=== PATIENT | female | born 1940 | race Caucasian/White ===

== ENCOUNTER 2020-08-18 21:39 | Inpatient (IN) | payer MEDICARE, MEDICAID ==
[~2020-08-18] VITALS: Ht 165.1 cm; Wt 127.9 kg
[2020-08-18] MEDS ORDERED: LUMIGAN 0.01%2.5 ML OP (22:35)
[2020-08-18] MEDS ORDERED: ROCALTROL0.25 MCG PO (22:35)
[2020-08-18] MEDS ORDERED: BAYER CHEWABLE81 MG PO (22:36)
[2020-08-18] MEDS ORDERED: VITAMIN D325 MC1 PO (22:37)
[2020-08-18] MEDS ORDERED: MECLIZINE HCL25 MG PO (22:41)
[2020-08-18] MEDS ORDERED: FUROSEMIDE20 MG PO (22:46)
[2020-08-18] MEDS ORDERED: ULTRAM50 MG PO (22:55)
[2020-08-18] MEDS ORDERED: ZYLOPRIM100 MG PO (22:55)
[2020-08-18] MEDS ORDERED: ELAVIL25 MG PO (22:55)
[2020-08-18] MEDS ORDERED: LANTUS INS100 UNITS/ SC (22:56)
[2020-08-18] MEDS ORDERED: HUMULIN R100 UNIT/1 (22:57)
[2020-08-18] MEDS ORDERED: OXYBUTYNIN CHLOR5 MG PO (22:57)
[2020-08-18] MEDS ORDERED: LIPITOR20 MG PO (22:58)
[2020-08-18] MEDS ORDERED: GABAPENTIN100 MG PO (22:59)
[2020-08-18] MEDS ORDERED: LEVOXYL125 MCG PO (23:00)
[2020-08-18] MEDS ORDERED: C-10001000 MG PO (23:00)
[2020-08-18] MEDS ORDERED: TOPROL XL50 MG PO (23:01)
[2020-08-18] MEDS ORDERED: LISINOPRIL10 MG PO (23:02)
[2020-08-19] VITALS (7 sets, daily range): BP systolic 128–177; BP diastolic 47–76; BMI 47.0
--- NOTE | 2020-08-19 00:15 | NUR ---
DR. GUAN MADE AWARE OF CONSULT AND ABG RESULTS, NO NEW ORDERS RECEIVED AT THIS TIME.
--- NOTE | 2020-08-19 01:10 | NUR ---
URINE SAMPLE COLLECTED AND TAKEN TO LAB.
[2020-08-19 05:33] LABS: BASOPHILS 0.2 % (0-2); EOSINOPHILS 2.9 % (0-7); HEMATOCRIT 46.1 % (36.0-48.0); HEMOGLOBIN 14.1 g/dL (12-16); IMMATURE GRANULOCYTES 0.5 % (0-5); LYMPHOCYTE ABS# 1.95 10x3/uL (1.18-3.74); LYMPHOCYTES 22.5 % (15-50); MCH 28.9 pg (26.0-34.0); MCHC 30.6 g/dL (31.0-37.0); MCV 94.5 fL (80.0-100.0); MEAN PLATELET VOLUME 9.9 fL (7.4-10.4); MONOCYTES 13.2 % (2-11); NEUTROPHIL ABS# 5.25 10x3/uL (1.56-6.13); NEUTROPHILS 60.7 % (40-80); PLATELET COUNT 226 10x3/uL (130-400); RBC 4.88 10x6/uL (4.00-5.40); RDW 15.3 % (11.5-14.5); WBC 8.7 10x3/uL (4.8-10.8)
[2020-08-19 06:04] LABS: ALBUMIN 2.5 g/dL (3.4-5.0); ANION GAP 8.4 mmol/L (8-16); BILIRUBIN - TOTAL 0.44 mg/dL (0.2-1.3); CALCIUM 8.8 mg/dL (8.5-10.1); CARBON DIOXIDE 33.4 mmol/L (21.0-32.0); CREATININE - SERUM 1.1 mg/dL (0.6-1.3); POTASSIUM - SERUM 4.8 mmol/L (3.5-5.1); PROTEIN - SERUM 6.3 g/dL (6.4-8.2)
[2020-08-19 06:36] LABS: BILIRUBIN NEGATIVE (NEGATIVE); KETONE NEGATIVE (NEGATIVE); NITRITE NEGATIVE (NEGATIVE); UROBILINOGEN NORMAL mg/dL (< 2)
[2020-08-19 06:37] LABS: BACTERIA FEW HPF (NONE SEEN); SQUAMOUS EPITHELIAL 0-5 HPF (0-4); WHITE CELLS - URINE 2 HPF (0-4)
[2020-08-19 07:37] LABS: BASOPHILS 0.2 % (0-2); EOSINOPHILS 3.2 % (0-7); HEMATOCRIT 45.3 % (36.0-48.0); HEMOGLOBIN 13.9 g/dL (12-16); IMMATURE GRANULOCYTES 0.6 % (0-5); LYMPHOCYTE ABS# 1.65 10x3/uL (1.18-3.74); LYMPHOCYTES 20.6 % (15-50); MCH 28.9 pg (26.0-34.0); MCHC 30.7 g/dL (31.0-37.0); MCV 94.2 fL (80.0-100.0); MEAN PLATELET VOLUME 9.6 fL (7.4-10.4); MONOCYTES 11.9 % (2-11); NEUTROPHIL ABS# 5.08 10x3/uL (1.56-6.13); NEUTROPHILS 63.5 % (40-80); PLATELET COUNT 237 10x3/uL (130-400); RBC 4.81 10x6/uL (4.00-5.40); RDW 15.3 % (11.5-14.5)
[2020-08-19 08:03] LABS: APTT 38.9 SECONDS (22.8-39.4); INR 1.07 (0.85-1.17); PROTIME 12.9 SECONDS (11.6-15.0)
[2020-08-19 08:04] LABS: D-DIMER-QUANTITATIVE 0.64 ug/mLFEU (0.20-0.54)
[2020-08-19 08:16] LABS: ALBUMIN 2.5 g/dL (3.4-5.0); ALKALINE PHOSPHATASE 123 U/L (30-120); BILIRUBIN - TOTAL 0.33 mg/dL (0.2-1.3); CALC OSMOLALITY 289 mosm/kg (275-300); CALCIUM 8.1 mg/dL (8.5-10.1); CHLORIDE - SERUM 102 mmol/L (98-107); CREATINE KINASE 60 UL (21-215); CREATININE - SERUM 1.1 mg/dL (0.6-1.3); GLUCOSE 281 mg/dL (74-106); POTASSIUM - SERUM 4.8 mmol/L (3.5-5.1); PRO BNP 169 pg/mL (0-450); PROTEIN - SERUM 5.6 g/dL (6.4-8.2); SODIUM 139 mmol/L (136-145); UREA NITROGEN 17 mg/dL (7-18); eGFR NON AFRICAN AMERICAN 51 mL/min (90-120)
[2020-08-19 08:20] LABS: ALT (SGPT) 23 U/L (10-68); TROPONIN-I < 0.017 ng/mL (0.000-0.060)
--- NOTE | 2020-08-19 18:32 | NUR ---
ATTEMPTED TO VERIFY MEDS WITH PATIENT AND SHE STATED SHE DID NOT KNOW HER MEDS, CALLED NUMBER FOR DAUGHTER AND IT WAS DISCONNECTED.
[2020-08-20] VITALS: BP 180/60
[2020-08-20 04:00] VITALS: BP 163/58
[2020-08-20 05:30] LABS: BASOPHILS 0.2 % (0-2); EOSINOPHILS 3.4 % (0-7); HEMATOCRIT 46.7 % (36.0-48.0); IMMATURE GRANULOCYTES 0.6 % (0-5); LYMPHOCYTE ABS# 2.12 10x3/uL (1.18-3.74); LYMPHOCYTES 24.2 % (15-50); MCH 28.3 pg (26.0-34.0); MCV 94.5 fL (80.0-100.0); MEAN PLATELET VOLUME 9.8 fL (7.4-10.4); MONOCYTES 12.3 % (2-11); NEUTROPHIL ABS# 5.19 10x3/uL (1.56-6.13); NEUTROPHILS 59.3 % (40-80); PLATELET COUNT 239 10x3/uL (130-400); RBC 4.94 10x6/uL (4.00-5.40); RDW 15.3 % (11.5-14.5); WBC 8.8 10x3/uL (4.8-10.8)
[2020-08-20 05:51] LABS: ALBUMIN 2.6 g/dL (3.4-5.0); ANION GAP 9.4 mmol/L (8-16); BILIRUBIN - TOTAL 0.34 mg/dL (0.2-1.3); CALCIUM 8.7 mg/dL (8.5-10.1); CARBON DIOXIDE 32.5 mmol/L (21.0-32.0); CREATININE - SERUM 0.9 mg/dL (0.6-1.3); POTASSIUM - SERUM 4.9 mmol/L (3.5-5.1); PROTEIN - SERUM 5.7 g/dL (6.4-8.2)
--- NOTE | 2020-08-20 08:25 | NUR ---
PATIENT SITTING UP IN BED, JUST FINISHED BREAKFAST. PATIENT DENIES PAIN OR NEEDS. CALL LIGHT IN REACH. NAD NOTED.
[2020-08-20 08:44] VITALS: BP 153/59
[2020-08-20 11:27] VITALS: BP 161/71
[2020-08-20 14:07] VITALS: BMI 46.9
[2020-08-20 16:00] VITALS: BP 156/58
--- NOTE | 2020-08-20 19:30 | NUR ---
PT SETTING UP ON SIDE OF BED, PT AAO X 4, RESP EVEN AND UNLABORED, NO DISTRESS NOTED, CL IN REACH.
[2020-08-20 20:00] VITALS: BP 167/56
[2020-08-21] VITALS: BP 124/64; BP 137/62
--- NOTE | 2020-08-21 01:53 | NUR ---
I have reviewed this patient and I concur with the Shift Assessment completed by the Licensed Practical Nurse today this shift.
[2020-08-21 05:57] LABS: BASOPHILS 0.2 % (0-2); EOSINOPHILS 3.4 % (0-7); HEMOGLOBIN 14.5 g/dL (12-16); IMMATURE GRANULOCYTES 0.6 % (0-5); LYMPHOCYTE ABS# 2.39 10x3/uL (1.18-3.74); LYMPHOCYTES 27.2 % (15-50); MCHC 30.9 g/dL (31.0-37.0); MEAN PLATELET VOLUME 10.2 fL (7.4-10.4); MONOCYTES 11.9 % (2-11); NEUTROPHIL ABS# 4.99 10x3/uL (1.56-6.13); NEUTROPHILS 56.7 % (40-80); PLATELET COUNT 252 10x3/uL (130-400); RDW 15.4 % (11.5-14.5); WBC 8.8 10x3/uL (4.8-10.8)
[2020-08-21 06:21] LABS: ALBUMIN 2.7 g/dL (3.4-5.0); ANION GAP 9.1 mmol/L (8-16); BILIRUBIN - TOTAL 0.3 mg/dL (0.2-1.3); CALCIUM 8.9 mg/dL (8.5-10.1); CARBON DIOXIDE 33.8 mmol/L (21.0-32.0); PROTEIN - SERUM 6.5 g/dL (6.4-8.2)
[2020-08-21 06:23] LABS: POTASSIUM - SERUM 3.9 mmol/L (3.5-5.1)
[2020-08-21 08:10] VITALS: BP 189/74
[2020-08-21 09:55] VITALS: Ht 165.1 cm; Wt 127.9 kg
[2020-08-21 12:00] VITALS: BP 136/61
[2020-08-21 16:00] VITALS: BP 156/85
--- NOTE | 2020-08-21 19:19 | NUR ---
pt lying in bed, awake, alert watchign tv, denies any needs, will continue to monitor
[2020-08-21 20:00] VITALS: BP 151/65
[2020-08-22] VITALS: BP 168/67
[2020-08-22 04:00] VITALS: BP 147/68
[2020-08-22 06:55] LABS: BASOPHILS 0.2 % (0-2); EOSINOPHILS 2.6 % (0-7); HEMATOCRIT 46.1 % (36.0-48.0); HEMOGLOBIN 13.9 g/dL (12-16); IMMATURE GRANULOCYTES 0.7 % (0-5); LYMPHOCYTE ABS# 1.97 10x3/uL (1.18-3.74); LYMPHOCYTES 23.4 % (15-50); MCH 28.4 pg (26.0-34.0); MCHC 30.2 g/dL (31.0-37.0); MCV 94.3 fL (80.0-100.0); MEAN PLATELET VOLUME 10.1 fL (7.4-10.4); MONOCYTES 11.3 % (2-11); NEUTROPHIL ABS# 5.21 10x3/uL (1.56-6.13); NEUTROPHILS 61.8 % (40-80); PLATELET COUNT 245 10x3/uL (130-400); RBC 4.89 10x6/uL (4.00-5.40); RDW 15.3 % (11.5-14.5); WBC 8.4 10x3/uL (4.8-10.8)
--- NOTE | 2020-08-22 07:00 | NUR ---
Lying in bed, awake/alert/oriented, T/R self ad bhavna, cont of B/B with BRPs per self ad bhavna, denies pain/other discomfort at this time, dressing to lia-rectal abscess C/D/I, call light/phone/water within reach, no s/s of acute distress observed.
[2020-08-22 07:07] LABS: ALBUMIN 2.6 g/dL (3.4-5.0); ANION GAP 8.6 mmol/L (8-16); BILIRUBIN - TOTAL 0.35 mg/dL (0.2-1.3); CALCIUM 8.6 mg/dL (8.5-10.1); CARBON DIOXIDE 33.3 mmol/L (21.0-32.0); CREATININE - SERUM 1.1 mg/dL (0.6-1.3); MAGNESIUM - SERUM 1.9 mg/dL (1.8-2.4); POTASSIUM - SERUM 3.9 mmol/L (3.5-5.1); PROTEIN - SERUM 6.1 g/dL (6.4-8.2); THYROID STIMULATING HORMONE 8.23 uIU/mL (0.36-3.74)
[2020-08-22 08:53] VITALS: BP 170/63
[2020-08-22 11:56] VITALS: BP 166/72
[2020-08-22 16:07] VITALS: BP 168/67
[2020-08-22 19:46] VITALS: BP 159/54
--- NOTE | 2020-08-22 20:40 | NUR ---
perirectal/left labia incision dressing changed per md orders, scant green/yellow drianage noted to old packing. no odor. pt denies pain or issues will contine to monitor
[2020-08-23 05:09] VITALS: BP 132/57
[2020-08-23 07:04] LABS: ALBUMIN 2.7 g/dL (3.4-5.0); ANION GAP 7.5 mmol/L (8-16); BILIRUBIN - TOTAL 0.29 mg/dL (0.2-1.3); CALCIUM 8.6 mg/dL (8.5-10.1); CARBON DIOXIDE 36.7 mmol/L (21.0-32.0); MAGNESIUM - SERUM 1.9 mg/dL (1.8-2.4); POTASSIUM - SERUM 4.2 mmol/L (3.5-5.1); PROTEIN - SERUM 5.7 g/dL (6.4-8.2)
[2020-08-23 07:18] LABS: BASOPHILS 0.3 % (0-2); EOSINOPHILS 1.9 % (0-7); HEMATOCRIT 45.7 % (36.0-48.0); HEMOGLOBIN 14.2 g/dL (12-16); IMMATURE GRANULOCYTES 0.9 % (0-5); LYMPHOCYTE ABS# 2.27 10x3/uL (1.18-3.74); LYMPHOCYTES 29.2 % (15-50); MCH 28.9 pg (26.0-34.0); MCHC 31.1 g/dL (31.0-37.0); MCV 92.9 fL (80.0-100.0); MEAN PLATELET VOLUME 10.7 fL (7.4-10.4); MONOCYTES 11.5 % (2-11); NEUTROPHIL ABS# 4.37 10x3/uL (1.56-6.13); NEUTROPHILS 56.2 % (40-80); PLATELET COUNT 205 10x3/uL (130-400); RBC 4.92 10x6/uL (4.00-5.40); RDW 15.2 % (11.5-14.5); WBC 7.8 10x3/uL (4.8-10.8)
--- NOTE | 2020-08-23 07:50 | NUR ---
Lying in bed, awake/alert/oriented, T/R self ad bhavna, cont of B/B with BRPs per self ad bhavna, denies pain/other discomfort at this time, call light/phone/water within reach, no s/s of acute distress observed.
[2020-08-23 08:17] VITALS: BP 142/60
[2020-08-23 11:36] VITALS: BP 153/87
--- NOTE | 2020-08-23 13:07 | NUR ---
Nutrition Follow-up: Eating well. Denies N/V. C/o some difficulty swallowing. Diet: Cardiac No new wt; last wt: 282# (08/20) Last BM: 08/21 Labs noted: Glu 259, Alb 2.7 Meds noted: Lantus, Humalog, Lasix, Florajen, Protonix, electrolyte protocol -Change to cardiac carb consistent diet. -Pt may benefit from an MANAGER ADVANCED eval. -Need new wt. -RD follow-up: 08/28
[2020-08-23 15:58] VITALS: BP 148/66
--- NOTE | 2020-08-23 18:15 | NUR ---
Cleaned abscess with 1/2 NS and 1/2 H2O2 then packed with gauze soaked with H2O2, tolerated well, no s/s of acute distress observed, call light/phone/water within reach, no s/s of acute distress observed.
[2020-08-23 19:03] VITALS: BP 160/72
[2020-08-24 00:28] VITALS: BP 146/50
[2020-08-24 04:10] VITALS: BP 159/61
[2020-08-24 06:34] LABS: BASOPHILS 0.1 % (0-2); EOSINOPHILS 1.5 % (0-7); HEMATOCRIT 46.2 % (36.0-48.0); IMMATURE GRANULOCYTES 0.5 % (0-5); LYMPHOCYTE ABS# 3.04 10x3/uL (1.18-3.74); LYMPHOCYTES 37.7 % (15-50); MCH 28.5 pg (26.0-34.0); MCHC 30.3 g/dL (31.0-37.0); MCV 93.9 fL (80.0-100.0); MEAN PLATELET VOLUME 9.6 fL (7.4-10.4); NEUTROPHIL ABS# 3.88 10x3/uL (1.56-6.13); NEUTROPHILS 48.2 % (40-80); RBC 4.92 10x6/uL (4.00-5.40); RDW 15.1 % (11.5-14.5); WBC 8.1 10x3/uL (4.8-10.8)
[2020-08-24 06:35] LABS: PLATELET COUNT 248 10x3/uL (130-400)
[2020-08-24 07:10] LABS: ALBUMIN 2.6 g/dL (3.4-5.0); ANION GAP 9.4 mmol/L (8-16); BILIRUBIN - TOTAL 0.34 mg/dL (0.2-1.3); CALCIUM 8.9 mg/dL (8.5-10.1); CARBON DIOXIDE 35.7 mmol/L (21.0-32.0); CREATININE - SERUM 1.1 mg/dL (0.6-1.3); POTASSIUM - SERUM 4.1 mmol/L (3.5-5.1); PROTEIN - SERUM 6.2 g/dL (6.4-8.2)
--- NOTE | 2020-08-24 07:50 | NUR ---
Lying in bed, awake/alert/oriented, T/R self with assist ad bhavna, cont of B/B with BRPs with assist ad bhavna, c/o acking back pain rated 9/10, medicated as ordered (see MAR), call light/phone/water within reach, no s/s of acute distress observed.
[2020-08-24 08:51] VITALS: BP 175/54
--- NOTE | 2020-08-24 09:45 | MORECARE ---
CASE MANAGEMENT DISCHARGE SUMMARY PATIENT: ALEJANDRA LEE UNIT: [id number] ADM DATE: 08/18/20 AGE: 79 : 40 SEX: F ROOM/BED: D.1890 AUTHOR: GIAN,DOC PHYSICIAN: REFERRING PHYSICIAN: CHAPARRITA FELIX MD DATE OF SERVICE: 08/24/20 Case Management Discharge Planning Summary COMMENTS ENTERED DATE: 08/23/20 14:51 CT COMMENT TYPE: Discharge Planning REVIEWER: Ruth Ruiz CM faxed all clinical and DWO for BIPAP or Trilogy whichever one the insurance will approve to [employer] and for home oxygen. Patient has a portable in her room from [employer]. I also faxed order and clinical for hospital bed and BSC. CM will continue to follow and assist with discharge planning/needs. ENTERED DATE: 08/22/20 20:54 CT COMMENT TYPE: Discharge Planning REVIEWER: Rahel Lyons CM spoke with patient to complete initial dc planning assessment. CM educated patient on the CM role and verbal consent given by patient to complete assessment. Patient lives at home with daughter. Patient is independent. At discharge patient plans to return home and feels this is a safe discharge. CM discussed availability of home health, rehab services, and medical equipment. Patient states they just got her set up with home 02 and portable tank. She also states that they have already got her setup with Home Health for when she discharges (dressing changes?) Patient states that she sleeps in a recliner because she can't breathe laying down. Patient states that she has a wound. CM asked if she got a hospital bed that she could have her head up would that help that way she would be able to reposition herself off of her wound. Patient states that she would also like a BSC and wheelchair if possible. Patient will have family to transport home. CM will continue to follow and will assist as needed with dc plans/needs. MALIA completed for [facility] in [place] [phone] fax [phone] and [facility] [phone]. Dr. Jessica souza patient set up for Trilogy upon discharge. CM sent order for Trilogy and BSC to [facility]. PAP REVIEW SUMMARY ANTICIPATED D/C DATE: EXPECTED LOS : CASE STATUS: DCP Initiated INITIAL REVIEW: 08/18/2020 INITIAL REVIEWER: Rahel Lyons FINAL DISCHARGE DISPOSITION: : FINAL REVIEWER: FINAL REVIEW DATE: DCP Focus Questions & Answers DCP Screen QUESTION: ANSWER High Risk Factors: : Hosp related to CHF, COPD, DM, End Stage Ds, CVA, CA DCP Evaluation QUESTION: ANSWER Patient and/or caregiver agree upon recommended discharge plan? : Yes Patient's current cognitive status: : *Oriented to person, place, situation, time and present Patient's ability to cope with chronic illness : d. No chronic illness Patient gives permission to discuss discharge plans with: (name, relationship and number) : MANUEL FOSTERLIE -[facility] - [phone]; CARLOSCHIQUIS BROWNLEE -[facility] - [phone] ? [phone] Functional screen assessment: : Unable to manage ADLs without immediate ongoing assistance Physical Status: : Compromised skin integrity Equipment needed for post hospitalization: : Wound Dressing Equipment needed for post hospitalization: : Wheelchair Equipment needed for post hospitalization: : Hospital Bed Equipment needed for post hospitalization: : Bedside Commode Living Arrangements: : Home with Extended Family Partial Dependence, assistance required for: : Ambulation / Mobility Other Equipment comments: : TRIOLOGY Results of this evaluation have been discussed with: : Patient Living arrangements comments: : LIVES W DTR Baseline cognitive status: : *Oriented to person, place, situation, time and present Planned post hospital services available for patient? : Yes Planned post hospital services covered by insurance plan? : Yes Does Patient have transportation to get home and to follow-up medical appointments when discharged from the hospital? : Yes Would patient like to participate in any Care Coordination programs (if applicable): : Not applicable Does the patient have electricity at home? : Yes Does the patient have running water in their house? : Yes Equipment in use: : Walker - Rolling Equipment in use: : Shower Chair Mental health screen: : No mental health history Psychosocial status: : Independent adult (65+) DCP Re-evaluation QUESTION: ANSWER Would patient like to participate in any Care Coordination programs (if applicable): : Not applicable PATIENT: ALEJANDRA LEE ENCOUNTER: [id number] MEDICAL RECORD#: [id number] ADMISSION DATE: 08/18/2020 DISCHARGE DATE: ATTENDING MD: CHAPARRITA MILLER : AGE: 79 MARITAL STATUS: W DC PLAN ID: [id number] FACILITY: [facility] PRINTED ON: 08/24/20 9:45 CT All edits/amendments must be made on the electronic document DICTATION DATE: 08/24/20944 CREPE SOLE WIRE BRUSHER: DM 08/24/20944 RPT#: [id number] DC DATE: STATUS: ADM IN [facility] [address] [place] [address] END OF REPORT
--- NOTE | 2020-08-24 09:55 | NUR ---
Ambulating in hallway approximately 120 ft with PT, edmund well
--- NOTE | 2020-08-24 12:50 | NUR ---
OT NOTE: PT COMPLETED SUPINE TO SIT WITH CGA-MIN A. PT COMPLETED ADL MOB TO TOILET WITH HH A. PT COMPLETED CLOTHING MANAGEMENT WITH CGA. PT COMPLETED TOILET HYGIENE WITH SBA. PT REQUIRED TOTAL A FOR NELLY SOCKS. [phone] [place] [facility]
[2020-08-24 13:06] VITALS: BP 141/79
--- NOTE | 2020-08-24 14:09 | NUR ---
O2 AT 2, PATIENT MIN ASST TO GET UP TO BEDSIDE AND TO STAND. PATIENT WALKED INTO BATHROOM WITH MIN ASST. PATIENT THEN WALKED IN TAVERA FOR 120 FEET USING WALKER WITH MIN ASST THEN SAT IN CHAIR.
[2020-08-24 15:51] VITALS: BP 147/66
[2020-08-24 20:19] VITALS: BP 125/65
[2020-08-25 00:59] VITALS: BP 187/69
--- NOTE | 2020-08-25 01:25 | NUR ---
1930--SITTING UP IN RECLINER AT BEDSIDE. ASKS FOR HER LEGS TO BE ELEVATED. PLEASANT & COOPERATIVE. DENIES ANY C/O. STATES THAT SHE IS JUST READY TO GO HOME. STATES THAT SHE GETS UP TO THE BATHROOM BY HERSELF.
[2020-08-25 05:47] VITALS: BP 146/59
[2020-08-25 06:52] LABS: BASOPHILS 0.4 % (0-2); EOSINOPHILS 1.7 % (0-7); HEMATOCRIT 48.7 % (36.0-48.0); HEMOGLOBIN 14.9 g/dL (12-16); IMMATURE GRANULOCYTES 0.6 % (0-5); LYMPHOCYTE ABS# 3.71 10x3/uL (1.18-3.74); LYMPHOCYTES 34.2 % (15-50); MCH 28.5 pg (26.0-34.0); MCHC 30.6 g/dL (31.0-37.0); MCV 93.3 fL (80.0-100.0); MONOCYTES 12.3 % (2-11); NEUTROPHIL ABS# 5.52 10x3/uL (1.56-6.13); NEUTROPHILS 50.8 % (40-80); PLATELET COUNT 264 10x3/uL (130-400); RBC 5.22 10x6/uL (4.00-5.40); RDW 15.1 % (11.5-14.5)
[2020-08-25 06:54] LABS: WBC 10.9 10x3/uL (4.8-10.8)
[2020-08-25 07:48] LABS: ALBUMIN 2.9 g/dL (3.4-5.0); ANION GAP 9.8 mmol/L (8-16); BILIRUBIN - TOTAL 0.38 mg/dL (0.2-1.3); CALCIUM 9.2 mg/dL (8.5-10.1); CARBON DIOXIDE 35.4 mmol/L (21.0-32.0); CREATININE - SERUM 1.2 mg/dL (0.6-1.3); POTASSIUM - SERUM 4.2 mmol/L (3.5-5.1); PROTEIN - SERUM 6.9 g/dL (6.4-8.2)
--- NOTE | 2020-08-25 07:50 | NUR ---
Lying in bed, awake/alert/oriented, T/R self with assist ad bhavna, cont of B/B with BRPs per self ad bhavna, denies pain/other discomfort at this time, call light/phone/water within reach, no s/s of acute distress observe.d
[2020-08-25 08:26] VITALS: BP 152/50
[2020-08-25] MEDS ORDERED: FLORAJEN DIGES1 EACH PO (11:12)
[2020-08-25] MEDS ORDERED: MUCINEX600 MG PO (11:12)
[2020-08-25] MEDS ORDERED: PROTONIX40 MG PO (11:13)
[2020-08-25] MEDS ORDERED: LEVOFLOXACIN500 MG PO (11:15)
[2020-08-25] MEDS ORDERED: SYNTHROID137 MCG PO (11:15)
--- NOTE | 2020-08-25 15:00 | NUR ---
Provided written/verbal discharge instructions/education to pt and daughter to which both stated understanding, call light/phone/water within reach.
--- NOTE | 2020-08-25 15:10 | NUR ---
Discontinued IV access/cardiac telemetry monitoring, daughter gathering possessions, pt dressing self.
[2020-08-25 15:20] VITALS: BP 157/55
--- NOTE | 2020-08-25 15:35 | NUR ---
Discharged home to self care with home health services in stable condition via w/c accompanied by hospital staff and family member, no s/s of acute distress observed.
--- NOTE | 2020-08-25 16:52 | MORECARE ---
CASE MANAGEMENT DISCHARGE SUMMARY PATIENT: ALEJANDRA LEE UNIT: [id number] ADM DATE: 08/18/20 AGE: 79 : 40 SEX: F ROOM/BED: D.6440 AUTHOR: GIAN,DOC PHYSICIAN: REFERRING PHYSICIAN: CHAPARRITA FELIX MD DATE OF SERVICE: 08/25/20 Case Management Discharge Planning Summary COMMENTS ENTERED DATE: 08/23/20 14:51 CT COMMENT TYPE: Discharge Planning REVIEWER: Ruth Ruiz CM faxed all clinical and DWO for BIPAP or Trilogy whichever one the insurance will approve to [employer] and for home oxygen. Patient has a portable in her room from [employer]. I also faxed order and clinical for hospital bed and BSC. CM will continue to follow and assist with discharge planning/needs. ENTERED DATE: 08/22/20 20:54 CT COMMENT TYPE: Discharge Planning REVIEWER: Rahel Lyons CM spoke with patient to complete initial dc planning assessment. CM educated patient on the CM role and verbal consent given by patient to complete assessment. Patient lives at home with daughter. Patient is independent. At discharge patient plans to return home and feels this is a safe discharge. CM discussed availability of home health, rehab services, and medical equipment. Patient states they just got her set up with home 02 and portable tank. She also states that they have already got her setup with Home Health for when she discharges (dressing changes?) Patient states that she sleeps in a recliner because she can't breathe laying down. Patient states that she has a wound. CM asked if she got a hospital bed that she could have her head up would that help that way she would be able to reposition herself off of her wound. Patient states that she would also like a BSC and wheelchair if possible. Patient will have family to transport home. CM will continue to follow and will assist as needed with dc plans/needs. MALIA completed for [facility] in [place] [phone] fax [phone] and [facility] [phone]. Dr. Jessica souza patient set up for Trilogy upon discharge. CM sent order for Trilogy and BSC to [facility]. DCP REVIEW SUMMARY ANTICIPATED D/C DATE: EXPECTED LOS : CASE STATUS: DCP Initiated INITIAL REVIEW: 08/18/2020 INITIAL REVIEWER: Rahel Lyons FINAL DISCHARGE DISPOSITION: : FINAL REVIEWER: FINAL REVIEW DATE: DCP Focus Questions & Answers DCP Screen QUESTION: ANSWER High Risk Factors: : Hosp related to CHF, COPD, DM, End Stage Ds, CVA, CA DCP Evaluation QUESTION: ANSWER Patient gives permission to discuss discharge plans with: (name, relationship and number) : MANUEL CAMPBELL -[facility] - [phone]; CARLOS BROWNLEE -[facility] - [phone] ? [phone] Patient's ability to cope with chronic illness : d. No chronic illness Patient's current cognitive status: : *Oriented to person, place, situation, time and present Patient and/or caregiver agree upon recommended discharge plan? : Yes Physical Status: : Compromised skin integrity Functional screen assessment: : Unable to manage ADLs without immediate ongoing assistance Partial Dependence, assistance required for: : Ambulation / Mobility Living Arrangements: : Home with Extended Family Equipment needed for post hospitalization: : Bedside Commode Equipment needed for post hospitalization: : Hospital Bed Equipment needed for post hospitalization: : Wheelchair Equipment needed for post hospitalization: : Wound Dressing Baseline cognitive status: : *Oriented to person, place, situation, time and present Living arrangements comments: : LIVES W DTR Results of this evaluation have been discussed with: : Patient Other Equipment comments: : TRIOLOGY Planned post hospital services available for patient? : Yes Does Patient have transportation to get home and to follow-up medical appointments when discharged from the hospital? : Yes Planned post hospital services covered by insurance plan? : Yes Would patient like to participate in any Care Coordination programs (if applicable): : Not applicable Does the patient have electricity at home? : Yes Does the patient have running water in their house? : Yes Equipment in use: : Shower Chair Equipment in use: : Walker - Rolling Mental health screen: : No mental health history Psychosocial status: : Independent adult (65+) DCP Re-evaluation QUESTION: ANSWER Would patient like to participate in any Care Coordination programs (if applicable): : Not applicable PATIENT: ALEJANDRA LEE ENCOUNTER: [id number] MEDICAL RECORD#: [id number] ADMISSION DATE: 08/18/2020 DISCHARGE DATE: 08/25/2020 ATTENDING MD: CHAPARRITA MILLER : AGE: 79 MARITAL STATUS: W DC PLAN ID: [id number] FACILITY: [facility] PRINTED ON: 08/25/20 16:52 CT All edits/amendments must be made on the electronic document DICTATION DATE: 08/25/201651 NURSING ASSISTANT: BRITTNI 08/25/201651 RPT#: [id number] DC DATE:08/25/20 STATUS: DIS IN [facility] [address] [place] [address] END OF REPORT
--- NOTE | 2020-08-27 15:41 | MORECARE ---
CASE MANAGEMENT DISCHARGE SUMMARY PATIENT: ALEJANDRA LEE UNIT: [id number] ADM DATE: 08/18/20 AGE: 79 : 40 SEX: F ROOM/BED: D.4250 AUTHOR: GIAN,DOC PHYSICIAN: REFERRING PHYSICIAN: CHAPARRITA FELIX MD DATE OF SERVICE: 08/27/20 Case Management Discharge Planning Summary COMMENTS ENTERED DATE: 08/23/20 14:51 CT COMMENT TYPE: Discharge Planning REVIEWER: Ruth Ruiz CM faxed all clinical and DWO for BIPAP or Trilogy whichever one the insurance will approve to [employer] and for home oxygen. Patient has a portable in her room from [email or web address]. I also faxed order and clinical for hospital bed and BSC. CM will continue to follow and assist with discharge planning/needs. ENTERED DATE: 08/22/20 20:54 CT COMMENT TYPE: Discharge Planning REVIEWER: Rahel Lyons CM spoke with patient to complete initial dc planning assessment. CM educated patient on the CM role and verbal consent given by patient to complete assessment. Patient lives at home with daughter. Patient is independent. At discharge patient plans to return home and feels this is a safe discharge. CM discussed availability of home health, rehab services, and medical equipment. Patient states they just got her set up with home 02 and portable tank. She also states that they have already got her setup with Home Health for when she discharges (dressing changes?) Patient states that she sleeps in a recliner because she can't breathe laying down. Patient states that she has a wound. CM asked if she got a hospital bed that she could have her head up would that help that way she would be able to reposition herself off of her wound. Patient states that she would also like a BSC and wheelchair if possible. Patient will have family to transport home. CM will continue to follow and will assist as needed with dc plans/needs. MALIA completed for [facility] in [place] [phone] fax [phone] and [facility] [phone]. Dr. Jessica souza patient set up for Trilogy upon discharge. CM sent order for Trilogy and BSC to [facility]. DCP REVIEW SUMMARY ANTICIPATED D/C DATE: EXPECTED LOS : CASE STATUS: DCP Initiated INITIAL REVIEW: 08/18/2020 INITIAL REVIEWER: Rahel Lyons FINAL DISCHARGE DISPOSITION: : FINAL REVIEWER: FINAL REVIEW DATE: DCP Focus Questions & Answers DCP Screen QUESTION: ANSWER High Risk Factors: : Hosp related to CHF, COPD, DM, End Stage Ds, CVA, CA DCP Evaluation QUESTION: ANSWER Patient and/or caregiver agree upon recommended discharge plan? : Yes Patient's current cognitive status: : *Oriented to person, place, situation, time and present Patient's ability to cope with chronic illness : d. No chronic illness Patient gives permission to discuss discharge plans with: (name, relationship and number) : MANUEL FOSTERLIE -[facility] - [phone]; CARLOSCHIQUIS BROWNLEE -[facility] - [phone] ? [phone] Functional screen assessment: : Unable to manage ADLs without immediate ongoing assistance Physical Status: : Compromised skin integrity Equipment needed for post hospitalization: : Bedside Commode Equipment needed for post hospitalization: : Hospital Bed Equipment needed for post hospitalization: : Wheelchair Equipment needed for post hospitalization: : Wound Dressing Living Arrangements: : Home with Extended Family Partial Dependence, assistance required for: : Ambulation / Mobility Other Equipment comments: : TRIOLOGY Results of this evaluation have been discussed with: : Patient Baseline cognitive status: : *Oriented to person, place, situation, time and present Living arrangements comments: : LIVES W DTR Planned post hospital services available for patient? : Yes Planned post hospital services covered by insurance plan? : Yes Does Patient have transportation to get home and to follow-up medical appointments when discharged from the hospital? : Yes Would patient like to participate in any Care Coordination programs (if applicable): : Not applicable Does the patient have electricity at home? : Yes Does the patient have running water in their house? : Yes Equipment in use: : Shower Chair Equipment in use: : Walker - Rolling Mental health screen: : No mental health history Psychosocial status: : Independent adult (65+) DCP Re-evaluation QUESTION: ANSWER Would patient like to participate in any Care Coordination programs (if applicable): : Not applicable PATIENT: ALEJANDRA LEE ENCOUNTER: [id number] MEDICAL RECORD#: [id number] ADMISSION DATE: 08/18/2020 DISCHARGE DATE: 08/25/2020 ATTENDING MD: CHAPARRITA MILLER : AGE: 79 MARITAL STATUS: W DC PLAN ID: [id number] FACILITY: [facility] PRINTED ON: 08/27/20 15:41 CT All edits/amendments must be made on the electronic document DICTATION DATE: 08/27/20 154 MILITARY LAWYER: BRITTNI 08/27/20 154 RPT#: [id number] DC DATE:08/25/20 STATUS: DIS IN [facility] [address] [place] [address] END OF REPORT
== END 2020-08-25 15:30 | disposition home health service (06) | DRG 189 ==
LOC: D.M2 21:39
PROVIDERS: ADMIT Emergency Medicine; ATTEND Emergency Medicine
PROC: 5A09457 Assistance with Respiratory Ventilation, 24-96 Consecutive Hours, Continuous Positive Airway Pressure (ICD-10-PCS; principal; 2020-08-19)
DX: J96.12 Chronic respiratory failure with hypercapnia (principal); K61.1 Rectal abscess; I13.0 Hypertensive heart and chronic kidney disease with heart failure and stage 1 through stage 4 chronic kidney disease, or unspecified chronic kidney disease; Z68.42 Body mass index [BMI] 45.0-49.9, adult; E87.2 Acidosis; I25.10 Atherosclerotic heart disease of native coronary artery without angina pectoris; I50.9 Heart failure, unspecified; E03.9 Hypothyroidism, unspecified; N18.9 Chronic kidney disease, unspecified; E11.22 Type 2 diabetes mellitus with diabetic chronic kidney disease; E78.5 Hyperlipidemia, unspecified; E66.01 Morbid (severe) obesity due to excess calories; G47.30 Sleep apnea, unspecified; Z87.891 Personal history of nicotine dependence